=== PATIENT | male | born 1955 | race Native Hawaiian/Other Pacific Islander ===

== ENCOUNTER 2017-06-06 14:33 | Emergency (ER) | payer BC, MEDICAID ==
[~2017-06-06] VITALS: Ht 182.9 cm; Wt 79.0 kg
[~2017-06-06 14:33] MED LIST: ATOR10TA15 PO; MULTTAB67 PO; PRED5TAB PO; VITA400C59 CHEW
[2017-06-06 14:42] VITALS: BP 136/88; PULSE 82; RESP 20; TEMP 98.3; O2SAT 100
[2017-06-06] MEDS ORDERED: SODIUM CHLORIDE 0.9% FLUSH 10 ML FLUSH IV FLUSH PRN (15:00)
--- NOTE | 2017-06-06 15:06 | PD ---
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 Patient states while at his oncologist's office this morning he urinated and a large amount of blood with large blood clots came out of his urethra. He then went to his urologist's office where they placed a urinary catheter and a large amount of blood came out into his leg bag. Patient went out to lunch after seeing the urologist and blood began to go past his urinary catheter even though he was not trying to urinate. He went back to the urologist office and they flush it a few more times and discharged him home. He called the office to state he had urgency and is continuing to bleed and they recommended come to the emergency room for evaluation. States he feels like he has lost a large amount of blood and has associated lightheadedness. Denies any chronic medical conditions or daily medications other than hypercholesterolemia. PFSH Past Medical History Cancer: Yes (PROSTATE CANCER) Cardiovascular Problems: No Diabetes: No Endocrine: No Gastrointestinal Disorders: No Genitourinary: Yes (BPH) Hepatitis: No Hiatal Hernia: No Hypertension: No Immune Disorder: No Musculoskeletal: No Neurologic: No Psychiatric: No Reproductive: Yes (PROSTATE CA RIGHT NOW) Respiratory: No Thyroid Disease: No Tetanus Vaccination: < 5 Years Past Surgical History Abdominal Surgery: Yes (SIMON) AICD: No Joint Replacement: No Pacemaker: No Other Surgery: Yes (CYSTOSCOPY) Social History Alcohol Use: No Tobacco Use: Yes Substance Use: No Allergies-Medications (Allergen,Severity, Reaction): Coded Allergies: Fish Containing Products (Unverified Allergy, Severe, Rash, 06/06/17) Reported Meds & Prescriptions Reported Meds & Active Scripts Active Ibuprofen 800 Mg Tab 800 Mg PO Q8H PRN Pyridium (Phenazopyridine HCl) 100 Mg Tab 100 Mg PO Q8H PRN Reported Prednisone 5 Mg Tab 5 Mg PO BID Vitamin D-400 (Cholecalciferol) 400 Unit Chew 400 Units CHEW DAILY Multiple Vitamin 1 Tab 1 Tab PO DAILY Atorvastatin (Atorvastatin Calcium) 10 Mg Tab 10 Mg PO EVERY OTHER DAY Review of Systems Except as stated in HPI: all other systems reviewed are Neg Physical Exam Narrative GENERAL: Well-nourished, well-developed nail in no acute distress. Afebrile. Ambulatory. SKIN: Focused skin assessment warm/dry. HEAD: Normocephalic. EYES: No scleral icterus. No injection or drainage. NECK: Supple, trachea midline. No JVD or lymphadenopathy. CARDIOVASCULAR: Regular rate and rhythm without murmurs, gallops, or rubs. RESPIRATORY: Breath sounds equal bilaterally. No accessory muscle use. GENITOURINARY: Uncircumcised. Holt catheter in place. Mild bloody drainage around the tip of the Holt. Data Data Last Documented VS Vital Signs Date Time Temp Pulse Resp B/P (MAP) Pulse Ox O2 Delivery O2 Flow Rate FiO2 06/06/17 14:42 98.3 82 20 136/88 (104) 100 Orders Orders Complete Blood Count With Diff (06/06/17 14:45) Basic Metabolic Panel (Bmp) (06/06/17 14:45) Prothrombin Time / Inr (Pt) (06/06/17 14:46) Act Partial Throm Time (Ptt) (06/06/17 14:46) Iv Access Insert/Monitor (06/06/17 14:46) Sodium Chloride 0.9% Flush (Ns Flush) (06/06/17 15:00) Phenazopyridine (Pyridium) (06/06/17 16:15) Acetamin-Hydrocod 325-5 Mg ([place] 5-325 (06/06/17 16:15) Labs Laboratory Tests Test 06/06/17 15:00 White Blood Count 9.7 TH/MM3 Red Blood Count 3.67 MIL/MM3 Hemoglobin 11.6 GM/DL Hematocrit 34.6 % Mean Corpuscular Volume 94.3 FL Mean Corpuscular Hemoglobin 31.6 PG Mean Corpuscular Hemoglobin Concent 33.5 % Red Cell Distribution Width 13.3 % Platelet Count 159 TH/MM3 Mean Platelet Volume 10.5 FL Neutrophils (%) (Auto) 73.7 % Lymphocytes (%) (Auto) 19.9 % Monocytes (%) (Auto) 5.9 % Eosinophils (%) (Auto) 0.1 % Basophils (%) (Auto) 0.4 % Neutrophils # (Auto) 7.2 TH/MM3 Lymphocytes # (Auto) 1.9 TH/MM3 Monocytes # (Auto) 0.6 TH/MM3 Eosinophils # (Auto) 0.0 TH/MM3 Basophils # (Auto) 0.0 TH/MM3 CBC Comment DIFF FINAL Differential Comment Prothrombin Time 11.0 SEC Prothromb Time International Ratio 1.0 RATIO Activated Partial Thromboplast Time 20.7 SEC Blood Urea Nitrogen 11 MG/DL Creatinine 0.81 MG/DL Random Glucose 118 MG/DL Calcium Level 8.1 MG/DL Sodium Level 142 MEQ/L Potassium Level 3.7 MEQ/L Chloride Level 109 MEQ/L Carbon Dioxide Level 24.1 MEQ/L Anion Gap 9 MEQ/L Estimat Glomerular Filtration Rate 97 ML/MIN MDM Medical Decision Making Medical Screen Exam Complete: Yes Emergency Medical Condition: Yes Medical Record Reviewed: Yes Differential Diagnosis Bladder cancer, hematuria, prostate injury Narrative Course 61-year-old male presents to the emergency room for evaluation of hematuria. Patient states this morning while at the doctor's office, he began to urinate large blood clots. He went to his urologist office where they placed a Holt catheter and discharged home. States he was continuing to have discomfort and large clots so they recommended he come to the emergency room for evaluation. There is a large amount of blood in the leg bag on presentation. CBC and BMP are unremarkable. Vital signs stable. Fully catheter was flushed with pink drainage but no significant clots. The patient was unhappy with this process and requested a new nurse to have the Holt drained. At this point, his Holt was removed and he urinated on his own large amount of blood with clots. Then a continuous bladder irrigation Holt was placed. The CBI Holt was irrigated with pink colored fluid but no significant blood or clots.CBI Holt was replaced with a regular Holt. She was given Pyridium and Lortab for pain in the ED. I spoke to my attending physician, Dr. Keller, who recommends discharge. Discharged with prescriptions for Pyridium and IV Profen and told to follow-up with Dr. Rivero. He was instructed by their office to call tomorrow for an appointment. Will return for worsening symptoms. He understands and agrees to plan. Diagnosis Primary Impression: Urinary catheter complication Qualified Codes: T83.9XXA - Unspecified complication of genitourinary prosthetic device, implant and graft, initial encounter Referrals: Víctor Rivero MD Additional Instructions: Rest and drink plenty of fluids. The medication you got in the emergency room today, Pyridium, will make your urine turn orange. Take ibuprofen with food as directed, as needed for pain. Follow-up with Dr. Rivero as planned tomorrow. Return to the emergency room for worsening symptoms. Scripts Ibuprofen (Ibuprofen) 800 Mg Tab 800 MG PO Q8H Y for PAIN SCALE 1 TO 10, #15 TAB 0 Refills Prov: Kelly Keller DO 06/06/17 Phenazopyridine (Pyridium) 100 Mg Tab 100 MG PO Q8H Y for DYSURIA, #6 TAB 0 Refills Prov: Kelly Keller DO 06/06/17 Disposition: 01 DISCHARGE HOME Condition: Stable Nolvia Pollock Jun 06, 2017 15:06
[2017-06-06 15:19] LABS: AUTOMATED NEUTROPHIL # 7.2 TH/MM3 (1.8-7.7); BASOPHIL % 0.4 % (0.0-2.0); EOSINOPHIL % 0.1 % (0.0-4.0); HEMATOCRIT 34.6 % (39.0-51.0); HEMO FLAGS DIFF FINAL; LYMPH % 19.9 % (9.0-44.0); LYMPHOCYTE # 1.9 TH/MM3 (1.0-4.8); MEAN CELL VOLUME 94.3 FL (80.0-100.0); MEAN CORPUSCULAR HEMOGLOBIN 31.6 PG (27.0-34.0); MEAN CORPUSCULAR HGB CONC 33.5 % (32.0-36.0); MONO % 5.9 % (0.0-8.0); NEUT % 73.7 % (16.0-70.0); PLATELET COUNT 159 TH/MM3 (150-450); RED BLOOD COUNT 3.67 MIL/MM3 (4.50-5.90); RED CELL DISTRIBUTION WIDTH 13.3 % (11.6-17.2); WHITE BLOOD COUNT 9.7 TH/MM3 (4.0-11.0)
[2017-06-06 15:31] LABS: BICARBONATE 24.1 MEQ/L (21.0-32.0); POTASSIUM 3.7 MEQ/L (3.5-5.1)
[2017-06-06 15:42] LABS: APTT (PATIENT) 20.7 SEC (24.3-30.1)
[2017-06-06] MEDS ORDERED: PHENAZOPYRIDINE HCL 100 MG TAB PO ONE (16:15)
[2017-06-06] MEDS ORDERED: ACETAMINOPHEN/HYDROcodone 325 MG/5 MG TAB PO ONE (16:15)
[2017-06-06] MEDS ORDERED: IBUP1TAB7 PO (16:26)
[2017-06-06] MEDS ORDERED: PHEN0.4T PO (16:26)
[2017-06-06] MEDS ORDERED: VITATAB56 CHEW (21:32)
[2017-06-07] MEDS ORDERED: THERM PO (14:56)
[2017-06-07] MEDS ORDERED: ATOR10TA15 PO (14:56)
[2017-06-07] MEDS ORDERED: CIPR-9 PO (18:27)
[2017-06-07] MEDS ORDERED: NORC5TAB PO (18:28)
== END 2017-06-06 19:19 | disposition home or self-care (01) ==
LOC: NEPD 14:33
DX: T83.9XXA Unspecified complication of genitourinary prosthetic device, implant and graft, initial encounter (principal); R31.9 Hematuria, unspecified; R39.15 Urgency of urination; R42 Dizziness and giddiness; E78.00 Pure hypercholesterolemia, unspecified; Z72.0 Tobacco use; Z85.46 Personal history of malignant neoplasm of prostate; T83.091D Other mechanical complication of indwelling urethral catheter, subsequent encounter; R10.30 Lower abdominal pain, unspecified
CPT/HCPCS: 51702; 80048; 85025; 85610; 85730

== ENCOUNTER 2017-06-06 20:55 | Emergency (ER) | payer BC, MEDICAID ==
[~2017-06-06 20:55] MED LIST changes: +IBUP1TAB7 PO; +PHEN0.4T PO
[2017-06-06 20:58] VITALS: BP 127/71; PULSE 89; RESP 15; TEMP 98.4; O2SAT 99
[2017-06-06] MEDS ORDERED: VITATAB56 CHEW (21:32)
--- NOTE | 2017-06-06 21:35 | PD ---
HPI Chief Complaint: Complaint Time Seen by Provider: 21:22 Travel History International Travel<30 days: No Contact w/Intl Traveler<30days: No Traveled to known affect area: No History of Present Illness HPI patient had procedure with dr rivero, had hematuria afterwards...had marcelo placed....after a few hours stopped draining and suprapubic discomfort. came to ed for care, cbi placed, until no more clots noted and patient d/c with leg bag. now patient returns with 2 hours of nondarinnig, suprapubic pain and distention returns for care. last time patient had lortab prescribed but patient did not fill it yet PFS Past Medical History Cancer: Yes (CURRENT PROSTATE CANCER) Cardiovascular Problems: No Diabetes: No Endocrine: No Gastrointestinal Disorders: No Genitourinary: Yes (BPH) Hepatitis: No Hiatal Hernia: No Hypertension: No Immune Disorder: No Musculoskeletal: No Neurologic: No Psychiatric: No Reproductive: Yes (PROSTATE CA RIGHT NOW) Respiratory: No Thyroid Disease: No Past Surgical History Abdominal Surgery: Yes (SIMON) AICD: No Cholecystectomy: Yes Joint Replacement: No Pacemaker: No Other Surgery: Yes (CYSTOSCOPY) Social History Alcohol Use: No Tobacco Use: Yes Substance Use: No Allergies-Medications (Allergen,Severity, Reaction): Coded Allergies: Fish Containing Products (Unverified Allergy, Severe, Rash, 06/06/17) Reported Meds & Prescriptions Reported Meds & Active Scripts Active Ibuprofen 800 Mg Tab 800 Mg PO Q8H PRN Pyridium (Phenazopyridine HCl) 100 Mg Tab 100 Mg PO Q8H PRN Reported Vitamin D-400 (Cholecalciferol) 400 Unit Tab 400 Units CHEW DAILY Prednisone 5 Mg Tab 5 Mg PO BID Multiple Vitamin 1 Tab 1 Tab PO DAILY Atorvastatin (Atorvastatin Calcium) 10 Mg Tab 10 Mg PO EVERY OTHER DAY Review of Systems Except as stated in HPI: all other systems reviewed are Neg General / Constitutional: No: Fever Eyes: No: Visual changes HENT: No: Headaches Cardiovascular: No: Chest Pain or Discomfort Respiratory: No: Shortness of Breath Gastrointestinal: No: Abdominal Pain Genitourinary: Positive: Hematuria Musculoskeletal: No: Pain Skin: No Rash Neurologic: No: Weakness Psychiatric: No: Depression Endocrine: No: Polydipsia Hematologic/Lymphatic: No: Easy Bruising Physical Exam Narrative GENERAL: SKIN: Warm and dry. HEAD: Atraumatic. Normocephalic. EYES: Pupils equal and round. No scleral icterus. No injection or drainage. ENT: No nasal bleeding or discharge. Mucous membranes pink and moist. NECK: Trachea midline. No JVD. CARDIOVASCULAR: Regular rate and rhythm. RESPIRATORY: No accessory muscle use. Clear to auscultation. Breath sounds equal bilaterally. GASTROINTESTINAL: Abdomen soft, non-tender, nondistended except suprapubic mild ttp MUSCULOSKELETAL: Extremities without clubbing, cyanosis, or edema. No obvious deformities. NEUROLOGICAL: Awake and alert. No obvious cranial nerve deficits. Motor grossly within normal limits. Five out of 5 muscle strength in the arms and legs. Normal speech. PSYCHIATRIC: Appropriate mood and affect; insight and judgment normal. Data Data Last Documented VS Vital Signs Date Time Temp Pulse Resp B/P (MAP) Pulse Ox O2 Delivery O2 Flow Rate FiO2 06/06/17 21:23 84 18 06/06/17 20:58 98.4 127/71 (89) 99 Room Air Orders Orders Bladder/Catheter Irrigation (06/06/17 21:47) [facility] Medical Decision Making Medical Screen Exam Complete: Yes Emergency Medical Condition: Yes Medical Record Reviewed: Yes Differential Diagnosis obstructed marcelo requiring care Narrative Course PATIENT REFUSED CBI THIS TIME, ONLY WANTED MARCELO TO BE IRRIGATED EVEN DESPITE OFFERING UROJET. PATIENT UNDERSTANDS AND WILL SEE DR RIVERO IN AM Diagnosis Primary Impression: Obstructed Marcelo catheter Qualified Codes: T83.091D - Other mechanical complication of indwelling urethral catheter, subsequent encounter Referrals: Víctor Rivero MD Disposition: 01 DISCHARGE HOME Condition: Stable Nathan Mcmillan MD Jun 06, 2017 21:35
[2017-06-06] MEDS ORDERED: ACETAMINOPHEN/HYDROcodone 325 MG/10 MG TAB PO ONE (23:00)
[2017-06-06] MEDS ORDERED: LIDOCAINE HCL 2% JELLY 5 ML SYRINGE OTHER ONE (23:00)
[2017-06-07] MEDS ORDERED: THERM PO (14:56)
[2017-06-07] MEDS ORDERED: ATOR10TA15 PO (14:56)
[2017-06-07] MEDS ORDERED: CIPR-9 PO (18:27)
[2017-06-07] MEDS ORDERED: NORC5TAB PO (18:28)
== END 2017-06-06 23:45 | disposition home or self-care (01) ==
LOC: NEPE 20:55
DX: T83.091D Other mechanical complication of indwelling urethral catheter, subsequent encounter (principal); R10.30 Lower abdominal pain, unspecified; Z72.0 Tobacco use; Z85.46 Personal history of malignant neoplasm of prostate
CPT/HCPCS: 51700

== ENCOUNTER 2017-06-07 12:56 | Emergency (ER) | payer BC, MEDICAID ==
[~2017-06-07] VITALS: Ht 182.9 cm; Wt 79.0 kg
[~2017-06-07 12:56] MED LIST changes: -VITA400C59 CHEW; +VITATAB56 CHEW
[2017-06-07 12:58] VITALS: BP 130/63; PULSE 65; RESP 16; TEMP 98.4; O2SAT 98
[2017-06-07] MEDS ORDERED: THERM PO (14:56)
[2017-06-07] MEDS ORDERED: ATOR10TA15 PO (14:56)
--- NOTE | 2017-06-07 15:00 | PD ---
HPI Chief Complaint: Complaint Time Seen by Provider: 14:50 Travel History International Travel<30 days: No Contact w/Intl Traveler<30days: No Traveled to known affect area: No History of Present Illness HPI The patient is a 61-year-old male who presents to the emergency department for hematuria. The patient has a history of prostate cancer, underwent cystoscopy one year ago by his urologist, Dr. Rivero, to help alleviate his symptoms of urinary difficulties. 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 Bello. The patient states he developed hematuria yesterday and came to the emergency department where he had a Holt catheter placed. The patient states the Holt catheter got clogged and he came back to the emergency department and had a different Holt catheter placed. The patient states he continues to have hematuria, occasionally has a small amount of hematuria around the Holt catheter at the tip of the penis. He denies any nausea, vomiting, or abdominal pressure. The patient called his urologist office and was advised to come to the emergency department for further evaluation. He denies any history of coagulopathies and denies taking any blood thinners. The patient's symptoms are mild to moderate, possibly exacerbated by history of prostate cancer with metastasis to the bladder, and slightly alleviated with Holt catheter placement yesterday. PFSH Past Medical History Cancer: Yes (CURRENT PROSTATE CANCER) Cardiovascular Problems: No High Cholesterol: Yes Diabetes: No Diminished Hearing: No Endocrine: No Gastrointestinal Disorders: No GERD: Yes Genitourinary: Yes (BPH) Hepatitis: No Hiatal Hernia: No Hypertension: No Immune Disorder: No Musculoskeletal: No Neurologic: No Psychiatric: No Reproductive: Yes (PROSTATE CA RIGHT NOW) Respiratory: No Thyroid Disease: No Past Surgical History Abdominal Surgery: Yes AICD: No Cholecystectomy: Yes Joint Replacement: No Pacemaker: No Other Surgery: Yes (CYSTOSCOPY) Social History Alcohol Use: No Tobacco Use: Yes (10 CIGARETTES PER DAY) Substance Use: No Allergies-Medications (Allergen,Severity, Reaction): Coded Allergies: Fish Containing Products (Unverified Allergy, Severe, Rash, 06/06/17) Reported Meds & Prescriptions Reported Meds & Active Scripts Active Reported Thera M Plus (Multivitamins/Minerals Therapeutic) 1 Tab 1 Tab PO DAILY Atorvastatin (Atorvastatin Calcium) 10 Mg Tab 10 Mg PO DAILY Vitamin D-400 (Cholecalciferol) 400 Unit Tab 400 Units CHEW DAILY Prednisone 5 Mg Tab 5 Mg PO BID Review of Systems Except as stated in HPI: all other systems reviewed are Neg General / Constitutional: No: Fever Cardiovascular: No: Chest Pain or Discomfort Respiratory: No: Shortness of Breath Gastrointestinal: No: Nausea, Vomiting, Abdominal Pain Genitourinary: Positive: Hematuria Musculoskeletal: Positive: Weakness Physical Exam Narrative GENERAL: Awake, alert, pleasant 61-year-old male who appears his stated age and is in no acute respiratory distress. SKIN: Focused skin assessment warm/dry. HEAD: Atraumatic. Normocephalic. EYES: Pupils equal and round. No scleral icterus. No injection or drainage. ENT: No nasal bleeding or discharge. Mucous membranes pink and moist. NECK: Trachea midline. No JVD. CARDIOVASCULAR: Regular rate and rhythm. No murmur appreciated. RESPIRATORY: No accessory muscle use. Clear to auscultation. Breath sounds equal bilaterally. GASTROINTESTINAL: Abdomen soft, non-tender, nondistended. No rebound tenderness. Genitourinary: Holt catheter is in place, tactile leg bag. The patient has approximately 400 cc of dark red urine with visible blood in the catheter bag. The tip of the meatus around the catheter was evaluated, I cannot evaluate any acute hemorrhage. MUSCULOSKELETAL: No obvious deformities. No clubbing. No cyanosis. No edema. NEUROLOGICAL: Awake and alert. No obvious cranial nerve deficits. Motor grossly within normal limits. Normal speech. PSYCHIATRIC: Appropriate mood and affect; insight and judgment normal. Data Data Last Documented VS Vital Signs Date Time Temp Pulse Resp B/P (MAP) Pulse Ox O2 Delivery O2 Flow Rate FiO2 06/07/17 15:03 75 12 140/67 (91) 98 Room Air 06/07/17 12:58 98.4 Orders Orders Complete Blood Count With Diff (06/07/17 13:06) Comprehensive Metabolic Panel (06/07/17 13:06) Act Partial Throm Time (Ptt) (06/07/17 13:06) Prothrombin Time / Inr (Pt) (06/07/17 13:06) Urinalysis - C+S If Indicated (06/07/17 14:50) Urine Culture (06/07/17 13:09) Ciprofloxacin (Cipro) (06/07/17 16:00) Urinary Catheter Insert/Apply (06/07/17 16:12) Bladder/Catheter Irrigation (06/07/17 16:12) Urinary Catheter - Remove (06/07/17 16:12) Acetamin-Hydrocod 325-5 Mg ([place] 5-325 (06/07/17 16:15) Labs Laboratory Tests Test 06/07/17 13:09 Urine Color DARK-RED Urine Turbidity CLOUDY Urine pH 7.0 Urine Specific [place] 1.018 Urine Protein 100 mg/dL Urine Glucose (UA) NEG mg/dL Urine Ketones TRACE mg/dL Urine Occult Blood LARGE Urine Nitrite NEG Urine Bilirubin NEG Urine Urobilinogen LESS THAN 2.0 MG/DL Urine Leukocyte Esterase MOD Urine RBC /hpf Urine WBC /hpf Urine Amorphous Sediment FEW Urine Mucus MANY /lpf Microscopic Urinalysis Comment CATH-CULTURE IND [facility] Medical Decision Making Medical Screen Exam Complete: Yes Emergency Medical Condition: Yes Medical Record Reviewed: Yes Interpretation(s) Laboratory Tests Test 06/07/17 13:09 Urine Color DARK-RED Urine Turbidity CLOUDY Urine pH 7.0 Urine Specific [place] 1.018 Urine Protein 100 mg/dL Urine Glucose (UA) NEG mg/dL Urine Ketones TRACE mg/dL Urine Occult Blood LARGE Urine Nitrite NEG Urine Bilirubin NEG Urine Urobilinogen LESS THAN 2.0 MG/DL Urine Leukocyte Esterase MOD Urine RBC /hpf Urine WBC /hpf Urine Amorphous Sediment FEW Urine Mucus MANY /lpf Microscopic Urinalysis Comment CATH-CULTURE IND Differential Diagnosis Differential diagnosis includes bladder cancer, hematuria, obstructive uropathy , coagulopathy: Symptomatic anemia, UTI, acute renal failure. Narrative Course IV and labs were ordered, and the patient was placed on cardiac telemetry monitoring and continuous pulse oximetry monitoring. UA was sent to lab. The patient does not have a three-way valve on his Holt catheter, therefore, prior to changing the Holt catheter to a three-way, a call was placed to the patient' s urologist, Dr. Rivero. The patient refused IV and laboratory evaluation. A repeat call was placed to Dr. Rivero. The patient's UA has innumerable RBCs and WBCs, unsure if this is hemorrhagic cystitis with infection versus possible bladder metastasis from prostate cancer with hematuria. A 22 [place] Holt catheter with three-way was placed in the bladder was irrigated with continuous bladder irrigation. The urine cleared to a pink discoloration. The patient will be discharged home with Cipro for 3 days as well as [place]. He is advised to follow-up with his urologist tomorrow. Return if symptoms worsen or progress. Physician Communication Physician Communication Dr. Rivero was paged at 2:50 PM. I discussed the patient with his urologist and was agreed we would place a larger Holt catheter with three-way valve and continuous bladder irrigation prior to discharge home. Diagnosis Primary Impression: Gross hematuria Patient Instructions: General Instructions Additional Instructions: Medications as directed. Please provide the patient a copy of his UA results at discharge. Follow-up with your urologist. Return if symptoms worsen or progress. Med/Other Pt SpecificInfo: Prescription(s) given Scripts Hydrocodone-Acetaminophen ([place]) 5 Mg-325 Mg Tab 1 TAB PO Q6H Y for PAIN, #12 TAB 0 Refills Prov: Rafy Polanco MD 06/07/17 Ciprofloxacin (Cipro) 500 Mg Tab 500 MG PO BID for Infection for 3 Days, #6 TAB 0 Refills Prov: Rafy Polanco MD 06/07/17 Disposition: 01 DISCHARGE HOME Condition: Stable Rafy Polanco MD Jun 07, 2017 15:00
[2017-06-07 15:03] VITALS: BP 140/67; PULSE 75; RESP 12; O2SAT 98
[2017-06-07 15:53] LABS: BLOOD, URINE LARGE (NEG); COMMENT (UR) CATH-CULTURE IND; CULTURE IF INDICATED CATH CULTURE IND; GLUCOSE,URINE NEG (NEG); KETONE, URINE TRACE mg/dL (NEG); MUCUS URINE MANY /lpf (OCC); NITRITE,URINE NEG (NEG); URINE COLOR DARK-RED (YELLW/STRAW)
[2017-06-07] MEDS ORDERED: CIPROFLOXACIN 500 MG TAB PO ONE (16:00)
[2017-06-07] MEDS ORDERED: ACETAMINOPHEN/HYDROcodone 325 MG/5 MG TAB PO ONE (16:15)
[2017-06-07] MEDS ORDERED: CIPR-9 PO (18:27)
[2017-06-07] MEDS ORDERED: NORC5TAB PO (18:28)
== END 2017-06-07 19:24 | disposition home or self-care (01) ==
LOC: NEPC 12:56
DX: R31.0 Gross hematuria (principal); B95.2 Enterococcus as the cause of diseases classified elsewhere; R53.1 Weakness; E78.00 Pure hypercholesterolemia, unspecified; K21.9 Gastro-esophageal reflux disease without esophagitis; N40.0 Benign prostatic hyperplasia without lower urinary tract symptoms; C61 Malignant neoplasm of prostate; F17.210 Nicotine dependence, cigarettes, uncomplicated; Z79.899 Other long term (current) drug therapy
CPT/HCPCS: 51700; 81001; 87077; 87086; 87186